=== PATIENT | male | born 1975 | race Two or more races ===

== ENCOUNTER 2019-06-23 06:49 | Day surgery (SDC) | payer MEDICAID ==
[~2019-06-23] VITALS: Ht 165.1 cm; Wt 70.1 kg
[2019-06-23] MEDS ORDERED: cefazolin/dext.iso 2gm/50ml 50 ML IV ONE (07:10)
[2019-06-23] MEDS ORDERED: normal saline 250ml IV soln 250 ML IV ONE (07:10)
[2019-06-23 07:11] VITALS: BP 124/80
[2019-06-23] MEDS ORDERED: fentaNYL/PF 50MCG/1 ML 2ML syringe IV ONE (07:15)
[2019-06-23] MEDS ORDERED: midazolam 2 mg/2 ml injection IV ONE (07:15)
[2019-06-23] MEDS ORDERED: HYDR-3686 PO (07:17)
[2019-06-23] MEDS ORDERED: FLUO10CA28 PO (07:17)
[2019-06-23 08:32] LABS: BASOPHILS # (AUTO) 0.1 X10'3 (0-0.2); BASOPHILS % (AUTO) 0.6 % (0-1); EOSINOPHILS # (AUTO) 0.2 X10'3 (0-0.9); EOSINOPHILS % (AUTO) 1.7 % (0-6); HEMATOCRIT 42.5 % (42.0-52.0); HEMOGLOBIN 14.3 g/dl (14.0-17.9); LYMPHOCYTES # (AUTO) 1.7 X10'3 (1.1-4.8); LYMPHOCYTES % (AUTO) 16.9 % (21-51); MEAN CORPUSCULAR HGB CONC 33.6 g/dL (33.0-36.5); MEAN CORPUSCULAR VOLUME 89.3 FL (78-98); MEAN PLATELET VOLUME 9.3 FL (7.4-10.4); MONOCYTES # (AUTO) 0.8 X10'3 (0-0.9); MONOCYTES % (AUTO) 8.2 % (2-12); NEUTROPHILS # (AUTO) 7.1 X10'3 (1.8-7.7); NEUTROPHILS % (AUTO) 72.6 % (42-75); PLATELET COUNT 148 X10'3 (140-440); RED BLOOD COUNT 4.76 X10'6 (4.70-6.10); RED CELL DISTRIBUTION WIDTH 13.2 % (11.5-14.5); WHITE BLOOD COUNT 9.8 X10'3 (4.5-11.0)
[2019-06-23 08:44] LABS: ALANINE AMINOTRANSFERASE 51 U/L (12-78); ALBUMIN 3.4 G/DL (3.4-5.0); ALKALINE PHOSPHATASE 87 IU/L (46-116); ANION GAP 7 (8-16); ASPARTATE AMINO TRANSFERASE 22 U/L (10-37); BILIRUBIN,TOTAL 0.2 MG/DL (0.1-1.0); BLOOD UREA NITROGEN 14 MG/DL (7-18); BUN/CREATININE RATIO 18.4 (5.4-32.0); CALCIUM 8.3 MG/DL (8.5-10.1); CHLORIDE 108 MMOL/L (99-107); CREATININE 0.76 MG/DL (0.60-1.10); GLUCOSE 109 MG/DL (70-104); POTASSIUM 4.1 MMOL/L (3.5-5.1); SODIUM 142 MMOL/L (135-145); TOTAL CARBON DIOXIDE 26.9 MMOL/L (24-32); TOTAL PROTEIN 6.7 G/DL (6.4-8.2); eGFR > 90 ML/MIN
[2019-06-23] MEDS ORDERED: fentaNYL/PF 50MCG/1 ML 2ML syringe ONE ×2 (08:57→09:22)
[2019-06-23] MEDS ORDERED: midazolam 2 mg/2 ml injection ONE ×2 (08:57→09:22)
[2019-06-23] MEDS ORDERED: LIDOcaine 1%/PF 5ML 10 MG/ML VIAL ONE (08:57)
[2019-06-23] MEDS ORDERED: heparin sodium, porcine/PF 100unit/ml 5ML syringe ONE (09:05)
[2019-06-23 09:55] VITALS: BP 122/81
[2019-06-23] MEDS ORDERED: normal saline 1000ml 1,000 ML IV SCH ×2 (10:00→11:42)
[2019-06-23 10:10] VITALS: BP 116/75
[2019-06-23 10:15] VITALS: BP 116/76
[2019-06-23 10:30] VITALS: BP 117/72
[2019-06-23 10:45] VITALS: BP 120/69
== END 2019-06-23 11:00 | disposition home or self-care (01) ==
LOC: SSTAY O 06:49
PROVIDERS: ATTEND Radiology Vascular & Interventional Radiology
DX: C19 Malignant neoplasm of rectosigmoid junction (principal); F32.9 Major depressive disorder, single episode, unspecified; F41.9 Anxiety disorder, unspecified; Z79.01 Long term (current) use of anticoagulants; Z79.891 Long term (current) use of opiate analgesic; Z79.899 Other long term (current) drug therapy; Z90.49 Acquired absence of other specified parts of digestive tract; Z80.42 Family history of malignant neoplasm of prostate
CPT/HCPCS: 36415; 36561; 76937; 77001; 80053; 85025; 85610; 99152; 99153; C1788; C1894; J1642; J2250; J3010; J7030; A6213

== ENCOUNTER 2025-04-28 07:17 | Emergency (ER) | payer MEDICAID, OTHER ==
[~2025-04-28] VITALS: Ht 160 cm; Wt 90.7 kg
[~2025-04-28 07:17] MED LIST: FLUO10CA28 PO; HYDR-3686 PO
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
--- NOTE | 2025-04-28 08:05 | ELECTROCARDIOGRAPH REPORT ---
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 Ming Blankenship Measurements Intervals [place] Rate: 67 P: 27 [place]: 154 QRS: -16 QRSD: 104 T: 19 QT: 387 QTc: 409 Interpretive Statements Sinus rhythm Borderline left axis deviation ST elev, probable normal early repol pattern Electronically Signed On 04-28-2025 8:41:[address] Ming Blankenship Please click the below link to view image of tracing.
[2025-04-28] MEDS: ondansetron/PF 4mg/2ml inj IV ONE (08:32)
[2025-04-28] MEDS: LIDOcaine 1% W/epiNEPHrine 1:100,000 20ml vial SQ ONE (08:39)
[2025-04-28] MEDS: morphine 4 MG/ML inj SYRINge IV ONE (08:39)
[2025-04-28 09:01] VITALS: TEMP 98
--- NOTE | 2025-04-28 09:02 | RADIOLOGY REPORT ---
EXAM: CT CT HEAD INDICATION: crush injury TECHNIQUE: CT of the head without intravenous contrast. Coronal and sagittal reformatted images are s ubmitted. Radiation Dose : 1. Head: CT Dose: CTDI volume is 61.2 mGy. Dose-length product is 1120.7 mGy*cm The dose indicators for CT are the volume Computed Tomography (CT) Dose Index (CTDIvol) and the Dose Length Product (DLP), and are measured in units of mGy and mGy-cm, respectively. These indicators are not patient dose, but values generated from the CT scanner acquisition factors. The report includes radiation exposure data for exposures received during this examination. All CT scans at this medical facility are performed using dose modulation techniques as appropriate to a performed exam including the following: Automated exposure control was utilized; adjustment of the MA and/or KV according to patient size; and use of iterative reconstruction technique. COMPARISON: None FINDINGS: There is no evidence of acute intracranial hemorrhage, extra-axial collection, mass effect, midline s hift, herniation or hydrocephalus. The ventricles, sulci and cisterns are age appropriate. The briones-white differentiation is intact. The visualized paranasal sinuses and mastoid air cells are clear. No depressed calvarial fracture. Right parietal scalp swelling, laceration and soft tissue emphysema. IMPRESSION: 1. No acute intracranial abnormality. 2. Right parietal scalp laceration, swelling and soft tissue gas.
--- NOTE | 2025-04-28 09:05 | RADIOLOGY REPORT ---
EXAM: CT CT CERVICAL SPINE INDICATION: Crush injury EXAM DATE: 04/28/2025 07:42 AM COMPARISON: None TECHNIQUE: Multiple axial CT images of the cervical spine were obtained using bone algorithm. Sagitta l and coronal reformatting was done. Bone and soft tissue windows were reviewed. Radiation Dose Information: CT Dose: CTDI volume is 18.6 mGy. Dose-length product is 392.7 mGy*cm FINDINGS: The cervical alignment is intact. Reversal of the cervical lordosis. No acute cervical spine fracture is identified. The vertebral body heights are intact. No suspicious osseous lesions are identified. Intervertebral disc space narrowing at C5-C6. No significant spinal stenosis. Neural foraminal steno sis noted at C5-C6. There is no prevertebral soft tissue swelling. Lung apices are clear. IMPRESSION: 1. No evidence of acute cervical spine fracture or traumatic malalignment. 2. Cervical spondylosis. All CT scans at this medical facility are performed using dose modulation techniques as appropriate t o a performed exam including the following: Automated exposure control was utilized; adjustment of th e MA and/or KV according to patient size; and use of iterative reconstruction technique.
[2025-04-28] MEDS: TETanus/Pertussis (Acell)/Diphther VAC/PF (Tdap-Adult) 0.5ml syringe IMVAC ONE (09:58)
[2025-04-28 10:46] VITALS: BP 163/95; PULSE 66; RESP 18; O2SAT 98
== END 2025-04-28 10:48 | disposition home or self-care (01) ==
LOC: ER 07:18
DX: S01.01XA Laceration without foreign body of scalp, initial encounter (principal); M54.2 Cervicalgia; R07.9 Chest pain, unspecified; W23.1XXA Caught, crushed, jammed, or pinched between stationary objects, initial encounter; Y93.89 Activity, other specified; Y92.89 Other specified places as the place of occurrence of the external cause; Y99.8 Other external cause status
CPT/HCPCS: 12001; 12013; 70450; 72125; 90471; 90715; 93005; 96374; 96375; 99285; J2270; J2405; L0172; 12002; A6449